=== PATIENT | male | born 1985 | race Caucasian/White ===

== ENCOUNTER 2022-08-01 15:39 | Inpatient (IN) | payer SELFPAY ==
[2022-08-01 15:39] VITALS: BP 131/88; PULSE 73; RESP 18; TEMP 37.2; O2SAT 96
[2022-08-01 16:47] VITALS: BMI 22.4
--- NOTE | 2022-08-01 17:12 | PC.NURSE ---
Patient states he knows he needs help and wants help for his alcoholism. He stated he drinks nightly and gets completely drunk. He says he feels fine during the day when his mind is busy and he's working but at night, when he doesn't have a distraction, he starts getting heavily depressed and begins drinking. Patient states he is currently in a custody mohamud with his ex over his 4 kids and she is not letting him see their youngest child, who is 6. He denies AH/VH and SI/HI at this time. Patient calm and cooperative.
[2022-08-01 21:58] VITALS: BP 131/88; PULSE 73; RESP 18; TEMP 37.2
[2022-08-01 22:37] VITALS: BP 124/73; PULSE 77; RESP 18; TEMP 37.2; O2SAT 96
[2022-08-02 06:00] VITALS: BP 110/70; PULSE 90; RESP 16; TEMP 36.5; O2SAT 98
--- NOTE | 2022-08-02 12:08 | P.NPUHP_ITS ---
Providers/Chief Complaint Admitting Physician: Rom Epps MD Chief Complaint: Depression HPI NPU History of Present Illness Boyd Epps is a 37 year old male who presented to [facility] in [place] with reports of depression and increased alcohol consumption leading to more depression after her divorce and loss of children. He endorsed needing help and knowing that if he did not make some changes he could not expect to stay safe. He was transferred to [facility] and admitted to the neuropsychiatric unit for definitive treatment of those issues. They sent him with an affidavit in the event he would change his mind about engaging in treatment. He presents today supporting the documentation from the outside hospital. He reports that he has never been in an inpatient hospital before and has never really had any outpatient services. He denies current medication and denies previous medication treatment. He reports smoking about a pack of cigarettes a day. He reports that his alcohol use has gotten out of control and his blood alcohol at the outside facility was 173. He denies marijuana or any other illicit drug use he denies any significant drug and alcohol treatment he denies any significant legal implications from his addiction. He reports that the majority of his challenges at this point are secondary to his separation/divorce from the mother of his child and the fact that she is now keeping him away from his child. He reports he is tried getting a magazine feeder and doing things legally but that the challenges have become overwhelming. 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 We discussed the risks, benefits and alternatives of initiating Prozac 20 mg p.o. every morning and he understood and agreed to proceed as is documented in this note. He reports that he has struggled with lack of interest, sadness, feelings of hopelessness worthlessness and helplessness. He reports he has just gotten to a point where he thinks about not living anymore but denies active suicidal planning. Psychiatric history: As above. Substance abuse history: As above. Developmental history: He denies issues with or delivery, reports he learned to walk and talk and met his developmental milestones on time, denies need for speech therapy learning support emotional support or special education classes but did report he had 1 year where he got special assistance with his math.. Psychosocial history: He reports that his parents were together when he was born. His father continues to be a significant support and was with him at the outside hospital. He denies any significant history of trauma. He reports that he has had consistent employment and denied any issues of major financial concern. He reports the main challenges with his child and no longer having access since the separation/divorce. Medical history: Denies any significant medical history or allergies. Legal history: Denies any significant legal challenges. Meds NPU Home Medications Medication Instructions Recorded Confirmed Last Taken Type No Known Home Medications 08/02/22 08/02/22 Unknown History Allergies Allergy/AdvReac Type Severity Reaction Status Date / Time No Known Allergies Allergy Verified 08/01/22 15:39 Mental Status Exam MSE Comments: This is a well-nourished, well-developed white male with adequate grooming and eye contact in hospital scrubs. No abnormal movements except for mild psychomotor retardation. Cooperative with exam in mild distress. Speech was decreased rate and volume. Mood described as depressed affect congruent. Thought process organized. Thought content: Patient denied suicidal ideation but endorsed significant passive wish, he denied giles icidal ideation, there were no delusions reported or noted, he denied any auditory or visual hallucinations. Attention and concentration were intact and memory appeared reliable but none were formally tested. He is alert and oriented x3. Insight and judgment appear fair. Impulse control is limited. Vitals/I&O/Wt Last Vital Signs Temp 97.7 F 08/02/22 06:00 Pulse 90 08/02/22 06:00 Resp 16 08/02/22 06:00 BP 110/70 08/02/22 06:00 Pulse Ox 98 08/02/22 06:00 O2 Del Method 08/02/22 06:00 Weight last 48 hrs Weight 74.843 kg Weight 74.843 kg A&P Assessment and plan (1) Major depressive disorder: (2) Alcohol use disorder, severe, dependence: (3) Alcohol withdrawal: Plan This is a 37-year-old white male with a long struggle with difficulties with his spouse and visitation, alcohol addiction that has worsened in that environment who presents with significant depression and an openness to initiate medications. 1. Initiate Prozac 20 mg p.o. every morning. 2. Continue every 15 minute checks for safety. 3. Encourage individual, group and milieu therapy. 4. Encourage sober living treatment after discharge at the highest level of care to which he is willing to commit. 5. Ensure appropriate referral to outpatient mental health services. Involuntary Hold Information 96 Hour Hold: 96 Hour Involuntary Admission: No Attestations NPU Medical Necessity Statement*: Inpatient hospitalization is medically necessary and the clinically appropriate intervention at this time. We will robyn tor/initiate medications and make changes as indicated. He will be in the hospital for over 2 midnights. Likely length of stay 3 to 5 days. Coding Level of Care Code Acute Manager Hi for [facility] Fwd Diagnoses Major depressive disorder F32.9 Alcohol use disorder, severe, dependence F10.20 Alcohol withdrawal F10.934
[2022-08-02 14:00] VITALS: BP 103/62; PULSE 78; RESP 16; TEMP 36.7; O2SAT 100
[2022-08-02] MEDS: fluoxetine 20 mg Capsule PO (20:33)
[2022-08-02 20:40] VITALS: BP 98/61; PULSE 85; RESP 18; TEMP 36.9; O2SAT 99
[2022-08-03 06:00] VITALS: BP 104/65; PULSE 70; RESP 16; TEMP 36.4; O2SAT 99
--- NOTE | 2022-08-03 09:11 | W.PM.NPUPNS ---
Subjective NPU Subjective: Patient presented today reporting that he denied any side effects to the Prozac thus far. He received 2 doses and is optimistic that he will feel better. We discussed a plan for him to connect with the social work team on Friday to make sure that he has appropriate referrals and follow-up for his discharge plan. Mental Status Exam MSE Comments: This is a well-nourished, well-developed white male with adequate grooming and eye contact in hospital scrubs. No abnormal movements except for mild psychomotor retardation. Cooperative with exam in mild distress. Speech was decreased rate and volume. Mood described as depressed, affect congruent. Thought process organized. Thought content: Patient denied suicidal ideation but endorsed significant passive wish, he denied homicidal ideation, there were no delusions reported or noted, he denied any auditory or visual hallucinations. Attention and concentration were intact and memory appeared reliable but none were formally tested. He is alert and oriented x3. Insight and judgment appear fair. Impulse control is limited. Vitals/I&O/Wt Last Vital Signs Temp 97.6 F 08/03/22 06:00 Pulse 70 08/03/22 06:00 Resp 16 08/03/22 06:00 BP 104/65 08/03/22 06:00 Pulse Ox 99 08/03/22 06:00 O2 Del Method 08/02/22 14:00 Weight last 48 hrs Weight 74.843 kg Weight 74.843 kg A&P Assessment and plan (1) Major depressive disorder: (2) Alcohol use disorder, severe, dependence: (3) Alcohol withdrawal: Plan This is a 37-year-old white male with a long struggle with difficulties with his spouse and visitation, alcohol addiction that has worsened in that environment who presents with significant depression and an openness to initiate medications. 1. Initiated Prozac 20 mg p.o. every morning. 2. Continue every 15 minute checks for safety. 3. Encourage individual, group and milieu therapy. 4. Encourage sober living treatment after discharge at the highest level of care to which he is willing to commit. 5. Ensure appropriate referral to outpatient mental health services. Involuntary Hold Information 96 Hour Hold: 96 Hour Involuntary Admission: No Attestations NPU Medical Necessity Statement*: Inpatient hospitalization is medically necessary and the clinically appropriate intervention at this time. We will monitor/initiate medications and make changes as indicated. Likely length of stay 2-4 days. Coding Level of Care Code Acute Middle Card Tender for [facility] Fwd Diagnoses Major depressive disorder F32.9 Alcohol use disorder, severe, dependence F10.20 Alcohol withdrawal F10.931
[2022-08-03] MEDS: thiamine 100 mg Tablet PO (09:26)
[2022-08-03] MEDS: multivitamin therapeutic Tablet 1 TAB PO (09:26)
[2022-08-03] MEDS: fluoxetine 20 mg Capsule PO (09:26)
[2022-08-03] MEDS: folic acid 1 mg Tablet PO (09:27)
[2022-08-03 14:00] VITALS: BP 116/74; PULSE 76; RESP 18; TEMP 36.7; O2SAT 98
[2022-08-03 20:29] VITALS: BP 114/70; PULSE 77; RESP 18; TEMP 36.9; O2SAT 97
[2022-08-04 06:00] VITALS: BP 120/77; PULSE 76; RESP 18; TEMP 36.8; O2SAT 97; BMI 23.3
[2022-08-04] MEDS: thiamine 100 mg Tablet PO (08:22)
[2022-08-04] MEDS: multivitamin therapeutic Tablet 1 TAB PO (08:22)
[2022-08-04] MEDS: fluoxetine 20 mg Capsule PO (08:22)
[2022-08-04] MEDS: folic acid 1 mg Tablet PO (08:22)
[2022-08-04 14:00] VITALS: BP 105/67; PULSE 86; RESP 18; TEMP 37.1; O2SAT 97
--- NOTE | 2022-08-04 15:06 | W.PM.NPUPNS ---
Subjective NPU Subjective: Patient presents today reporting that he is tolerating the Prozac without any significant side effects. We discussed in working with the social work team tomorrow to connect with outpatient services in his community. He reports that when he does go home that his father will pick him up. He does report that it is a decent distance away so they will need notice. Otherwise he denies feeling suicidal at this time but we discussed that the challenges that led to those feelings have not changed. Mental Status Exam MSE Comments: This is a well-nourished, well-developed white male with adequate grooming and eye contact in hospital scrubs. No abnormal movements except for mild psychomotor retardation. Cooperative with exam in mild distress. Speech was decreased rate and volume. Mood described as okay, affect congruent. Thought process organized. Thought content: Patient denied suicidal ideation but endorsed significant passive wish, he denied homicidal ideation, there were no delusions reported or noted, he denied any auditory or visual hallucinations. Attention and concentration were intact and memory appeared reliable but none were formally tested. He is alert and oriented x3. Insight and judgment appear fair. Impulse control is limited. Vitals/I&O/Wt Last Vital Signs Temp 98.2 F 08/04/22 06:00 Pulse 76 08/04/22 06:00 Resp 18 08/04/22 06:00 BP 120/77 08/04/22 06:00 Pulse Ox 97 08/04/22 06:00 O2 Del Method 08/04/22 06:00 Weight last 48 hrs Weight 78.188 kg Weight 78.188 kg A&P Assessment and plan (1) Major depressive disorder: (2) Alcohol use disorder, severe, dependence: (3) Alcohol withdrawal: Plan This is a 37-year-old white male with a long struggle with difficulties with his spouse and visitation, alcohol addiction that has worsened in that environment who presents with significant depression and an openness to initiate medications. 1. Initiated Prozac 20 mg p.o. every morning. 2. Continue every 15 minute checks for safety. 3. Encourage individual, group and milieu therapy. 4. Encourage sober living treatment after discharge at the highest level of care to which he is willing to commit. 5. Ensure appropriate referral to outpatient mental health services. Involuntary Hold Information 96 Hour Hold: 96 Hour Involuntary Admission: No Attestations NPU Medical Necessity Statement*: Inpatient hospitalization is medically necessary and the clinically appropriate intervention at this time. We will monitor/initiate medications and make changes as indicated. Likely length of stay 1-3 days. Coding Level of Care Code Acute Metalizer Field Operation for g Fwd Diagnoses Major depressive disorder F32.9 Alcohol use disorder, severe, dependence F10.20 Alcohol withdrawal F10.939
[2022-08-04 20:08] VITALS: BP 110/71; PULSE 74; RESP 18; TEMP 36.8; O2SAT 98
[2022-08-05 06:00] VITALS: BP 110/73; PULSE 70; RESP 18; TEMP 36.7; O2SAT 98
[2022-08-05] MEDS: thiamine 100 mg Tablet PO (08:01)
[2022-08-05] MEDS: folic acid 1 mg Tablet PO (08:01)
[2022-08-05] MEDS: multivitamin therapeutic Tablet 1 TAB PO (08:01)
[2022-08-05] MEDS: fluoxetine 20 mg Capsule PO ×2 (08:01)
[2022-08-05 14:00] VITALS: BP 113/72; PULSE 81; RESP 18; TEMP 36.6; O2SAT 97
--- NOTE | 2022-08-05 15:55 | W.PM.NPUPNS ---
Subjective NPU Subjective: Patient presented today reporting that he is starting to feel better and he met with the social work team and they are getting plans in place for aftercare after discharge. He is hopeful that the Prozac will provide continued relief and he can manage some of the challenges that are ahead. We discussed a plan to discharge in the morning and he will return to his father will pick him up then. Mental Status Exam MSE Comments: This is a well-nourished, well-developed white male with adequate grooming and eye contact in hospital scrubs. No abnormal movements except for mild psychomotor retardation. Cooperative with exam in mild distress. Speech was decreased rate and volume. Mood described as a little better, affect congruent. Thought process organized. Thought content: Patient denied suicidal or homicidal ideation, there were no delusions reported or noted, he denied any auditory or visual hallucinations. Attention and concentration were intact and memory appeared reliable but none were formally tested. He is alert and oriented x3. Insight and judgment appear fair. Impulse control is limited. Vitals/I&O/Wt Last Vital Signs Temp 98 F 08/05/22 14:00 Pulse 81 08/05/22 14:00 Resp 18 08/05/22 14:00 BP 113/72 08/05/22 14:00 Pulse Ox 97 08/05/22 14:00 O2 Del Method 08/05/22 14:00 Weight last 48 hrs Weight 78.188 kg Weight 78.188 kg A&P Assessment and plan (1) Major depressive disorder: (2) Alcohol use disorder, severe, dependence: (3) Alcohol withdrawal: Plan This is a 37-year-old white male with a long struggle with difficulties with his spouse and visitation, alcohol addiction that has worsened in that environment who presents with significant depression and an openness to initiate medications. 1. Initiated Prozac 20 mg p.o. every morning. 2. Continue every 15 minute checks for safety. 3. Encourage individual, group and milieu therapy. 4. Encourage sober living treatment after discharge at the highest level of care to which he is willing to commit. 5. Ensure appropriate referral to outpatient mental health services. Involuntary Hold Information 96 Hour Hold: 96 Hour Involuntary Admission: No Attestations NPU Medical Necessity Statement*: Inpatient hospitalization is medically necessary and the clinically appropriate intervention at this time. We will monitor/initiate medications and make changes as indicated. Tentative plan for discharge in the morning. Coding Level of Care Code Acute Bargain Table Clerk for g Fwd Diagnoses Major depressive disorder F32.9 Alcohol use disorder, severe, dependence F10.20 Alcohol withdrawal F10.936
[2022-08-05 20:04] VITALS: BP 120/80; PULSE 74; RESP 18; TEMP 36.9; O2SAT 97
[2022-08-06 06:00] VITALS: BP 125/84; PULSE 80; RESP 18; TEMP 36.6; O2SAT 97
[2022-08-06 07:46] VITALS: BP 125/84; PULSE 80; RESP 18; TEMP 36.6; O2SAT 97
[2022-08-06] MEDS: multivitamin therapeutic Tablet 1 TAB PO (08:13)
[2022-08-06] MEDS: fluoxetine 20 mg Capsule PO (08:13)
[2022-08-06] MEDS: folic acid 1 mg Tablet PO (08:13)
[2022-08-06] MEDS: thiamine 100 mg Tablet PO (08:13)
--- NOTE | 2022-08-06 09:46 | P.NPUDS_ITS ---
Diagnoses at Discharge Discharge Diagnosis (1) Major depressive disorder: Status: Acute (2) Alcohol use disorder, severe, dependence: Status: Acute (3) Alcohol withdrawal: Status: Acute Reason for Visit Reason for Visit: Depression Brief History: History of Present Illness Boyd Epps is a 37 year old male who presented to [facility] in [place] with reports of depression and increased alcohol consumption leading to more depression after her divorce and loss of children.? He endorsed needing help and knowing that if he did not make some changes he could not expect to stay safe.? He was transferred to [facility] and admitted to the neuropsychiatric unit for definitive treatment of those issues.? They sent him with an affidavit in the event he would change his mind about engaging in treatment.? He presents today supporting the documentation from the outside hospital.? He reports that he has never been in an inpatient hospital before and has never really had any outpatient services.? He denies current medication and denies previous medication treatment.? He reports smoking about a pack of cigarettes a day.? He reports that his alcohol use has gotten out of control and his blood alcohol at the outside facility was 173.? He denies marijuana or any other illicit drug use he denies any significant drug and alcohol treatment he denies any significant legal implications from his addiction.? He reports that the majority of his challenges at this point are secondary to his separation/divorce from the mother of his child and the fact that she is now keeping him away from his child.? He reports he is tried getting a technical instructor course developer and doing things legally but that the challenges have become overwhelming.? 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 We discussed the risks, benefits and alternatives of initiating Prozac 20 mg p.o. every morning and he understood and agreed to proceed as is documented in this note.? He reports that he has struggled with lack of interest, sadness, feelings of hopelessness worthlessness and helplessness.? He reports he has just gotten to a point where he thinks about not living anymore but denies active suicidal planning. Psychiatric history: As above. Substance abuse history: As above. Developmental history: He denies issues with or delivery, reports he learned to walk and talk and met his developmental milestones on time, denies need for speech therapy learning support emotional support or special education classes but did report he had 1 year where he got special assistance with his math.. Psychosocial history: He reports that his parents were together when he was born.? His father continues to be a significant support and was with him at the outside hospital.? He denies any significant history of trauma.? He reports that he has had consistent employment and denied any issues of major financial concern.? He reports the main challenges with his child and no longer having access since the separation/divorce. Medical history: Denies any significant medical history or allergies. Legal history: Denies any significant legal challenges. Hospital Course Hospital Course He slowly acclimated to the individual, group and milieu therapies provided.? He was really struggling with depression, a significant custody issue and suicidal thoughts. He also reported medication. In addition to thiamine we started Prozac 20 mg p.o. every morning and he denied any significant side effects. He was able to contract for safety outside of the hospital prior to discharge and showed significant improvement.? During the hospitalization, patient had routine laboratory studies which were within normal limits except for few outliers.? Additionally there was a general medical evaluation which was also within normal limits and revealed no new acute processes. Discharge Summary: At the time of discharge, he denied psychosis or lethality.? Mood and anxiety were well managed.? Patient endorsed a plan to avoid all drugs of abuse and follow-up with the aftercare recommendations of the treatment team.? Patient was evaluated and deemed to be absent credible lethality, and had achieved the maximum benefit from an inpatient hospitalization, so was discharged. Involuntary Hold Information 96 Hour Hold: 96 Hour Involuntary Admission: No Mental Status Exam MSE Comments: This is a well-nourished, well-developed white male with adequate grooming and eye contact in hospital scrubs. No abnormal movements except for mild psychomotor retardation. Cooperative with exam in mild distress. Speech was decreased rate and volume. Mood described as a little better, affect congruent. Thought process organized. Thought content: Patient denied suicidal or homicidal ideation, there were no delusions reported or noted, he denied any auditory or visual hallucinations. Attention and concentration were intact and memory appeared reliable but none were formally tested. He is alert and oriented x3. Insight and judgment appear fair. Impulse control is limited. Discharge Data Vitals: Last Vital Signs Temp 97.9 F 08/06/22 07:46 Pulse 80 08/06/22 07:46 Resp 18 08/06/22 07:46 BP 125/84 08/06/22 07:46 Pulse Ox 97 08/06/22 07:46 O2 Del Method 08/05/22 14:00 Discharge Plan Discharge Patient Disposition: Home Condition: Stable Prescriptions: New fluoxetine 20 mg Capsule 20 mg PO DAILY 30 Days Qty: 30 1RF Vitamin B-1 (mononitrate) 100 mg Tablet 100 mg PO DAILY 30 Days Qty: 30 1RF Discharge Orders: Discharge Order (Routine); Ordered 08/06/22 Ordered By: Rom Epps Referrals: [facility] [Other] Discharge Diet: Regular Discharge Activity: Resume usual activity Patient Instructions: Fluoxetine (By mouth), Thiamine (By mouth), Abuse of Alcohol (GEN), Opioid Safety Discharge Attestations NPU Time Spent in Discharge Care*: less than 30 min Specific Discharge Activities: Specific discharge activities: educating patient, discussing with bilingual case manager/social workers/dc planners, documenting/other paperwork and evaluating patient/reviewing data Coding Level of Care Code Acute Chg FW DC note Diagnoses Major depressive disorder F32.9 Alcohol use disorder, severe, dependence F10.20 Alcohol withdrawal F10.939
== END 2022-08-06 11:05 | disposition home or self-care (01) | DRG 881 ==
PROVIDERS: Admitting Provider Psychiatry & Neurology Psychiatry; Visit Provider Psychiatry & Neurology Psychiatry
DX: F32.9 Major depressive disorder, single episode, unspecified (principal); F10.239 Alcohol dependence with withdrawal, unspecified; F10.229 Alcohol dependence with intoxication, unspecified; F17.210 Nicotine dependence, cigarettes, uncomplicated; Z63.0 Problems in relationship with spouse or partner; Y90.6 Blood alcohol level of 120-199 mg/100 ml
CPT/HCPCS: 97165